=== PATIENT | female | born 1935 | race African-American/Black ===

== ENCOUNTER 2016-05-05 13:03 | Emergency (ER) | payer MEDICARE, OTHER ==
--- NOTE | 2016-05-05 13:45 | ED.ADGEN ---
Past Medical History Past Medical History: Anxiety, Dementia, Depression, GERD, Hypertension, Renal Failure Additional Past Medical Histor: HYPOPOTASSEMIA, Past Surgical History: No Surgical History Alcohol Use: None Drug Use: None Adult General Chief Complaint Chief Complaint: OTHER COMPLAINTS HPI HPI Patient is a 81 year old female with a history of dementia from the retirement. Patient herself is adamant that she is feeling fine and had no chest pain or other complaints today. However, there was report from the retirement that she did mention to one nurse that she was having a left-sided chest pain earlier today. Subsequently everyone else has received a negative answer. Patient looks very well. Her brothers in the room assisting with the history and states that she is definitely at her baseline looks just as well today as she did when he saw her yesterday. Review of Systems Review of Systems Constitutional: Denies fever or chills. [] Eyes: Denies change in visual acuity. [] HENT: Denies nasal congestion or sore throat. [] Respiratory: Denies cough or shortness of breath. [] Cardiovascular: Denies chest pain or edema. [] GI: Denies abdominal pain, nausea, vomiting, bloody stools or diarrhea. [] : Denies dysuria. [] Musculoskeletal: Denies back pain or joint pain. [] Integument: Denies rash. [] Neurologic: Denies headache, focal weakness or sensory changes. [] Endocrine: Denies polyuria or polydipsia. [] Lymphatic: Denies swollen glands. [] Psychiatric: Denies depression or anxiety. [] Allergies Allergies Allergies Coded Allergies Type Severity Reaction Last Updated Verified No Known Drug Allergies 06/16/15 No Physical Exam Physical Exam Constitutional: Well developed, well nourished, no acute distress, non-toxic appearance. [] HENT: Normocephalic, atraumatic, bilateral external ears normal, oropharynx moist, no oral exudates, nose normal. [] Eyes: PERRLA, EOMI, conjunctiva normal, no discharge. [] Neck: Normal range of motion, no tenderness, supple, no stridor. [] Cardiovascular:Heart rate regular rhythm, no murmur [] Lungs & Thorax: Bilateral breath sounds clear to auscultation [] Abdomen: Bowel sounds normal, soft, no tenderness, no masses, no pulsatile masses. [] Skin: Warm, dry, no erythema, no rash. [] Back: No tenderness, no CVA tenderness. [] Extremities: No tenderness, no cyanosis, no clubbing, ROM intact, no edema. [] Neurologic: Alert and oriented X 3, normal motor function, normal sensory function, no focal deficits noted. [] Psychologic: Affect normal, judgement normal, mood normal. [] Current Patient Data Vital Signs Vital Signs Date Time Temp Pulse Resp B/P Pulse Ox O2 Delivery O2 Flow Rate FiO2 05/05/16 14:45 72 111/60 99 05/05/16 13:45 Room Air 05/05/16 13:25 97.6 28 97.6 Lab Values Laboratory Tests Test 05/05/16 13:25 White Blood Count 5.5x10^3/uL (4.0-11.0) Red Blood Count 4.18x10^6/uL (3.50-5.40) Hemoglobin 12.4g/dL (12.0-15.5) Hematocrit 38.3% (36.0-47.0) Mean Corpuscular Volume 92fL (79-100) Mean Corpuscular Hemoglobin 30pg (25-35) Mean Corpuscular Hemoglobin Concent 32g/dL (31-37) Red Cell Distribution Width 15.9% (11.5-14.5) H Platelet Count 220x10^3/uL (140-400) Neutrophils (%) (Auto) 43% (31-73) Lymphocytes (%) (Auto) 43% (24-48) Monocytes (%) (Auto) 10% (0-9) H Eosinophils (%) (Auto) 3% (0-3) Basophils (%) (Auto) 1% (0-3) Neutrophils # (Auto) 2.4x10^3uL (1.8-7.7) Lymphocytes # (Auto) 2.4x10^3/uL (1.0-4.8) Monocytes # (Auto) 0.6x10^3/uL (0.0-1.1) Eosinophils # (Auto) 0.2x10^3/uL (0.0-0.7) Basophils # (Auto) 0.0x10^3/uL (0.0-0.2) Sodium Level 146mmol/L (136-145) H Potassium Level 4.3mmol/L (3.5-5.1) Chloride Level 106mmol/L (98-107) Carbon Dioxide Level 32mmol/L (21-32) Anion Gap 8 (6-14) Blood Urea Nitrogen 22mg/dL (7-20) H Creatinine 1.1mg/dL (0.6-1.0) H Estimated GFR (Cockcroft-Gault) 58.0 Glucose Level 83mg/dL (70-99) Calcium Level 9.8mg/dL (8.5-10.1) Troponin I Quantitative < 0.017ng/mL (0.000-0.055) Laboratory Tests 05/05/16 13:25 Laboratory Tests 05/05/16 13:25 EKG EKG EKG interpreted by me, normal sinus rhythm, 67 beats per minute, no ST segment elevation, normal axis. [] Radiology/Procedures Radiology/Procedures Indication: Chest pain and difficulty breathing. Technique: Upright portable chest radiograph was obtained. No comparison is available. Findings: The lungs are clear. The cardiopulmonary silhouette is within normal limits. There is atheromatous disease in the thoracic aorta. There are degenerative changes in the shoulders and spine with chronic right rotator cuff tear. Leads overlie the patient. Impression: No active pulmonary disease. DICTATED and SIGNED BY: LIT CAIN MD DATE: 05/05/16 7593 CC: CHRISTINA OWEN MD; UNKNOWN PCP NAME ~[] Course & Med Decision Making Course & Med Decision Making Pertinent Labs and Imaging studies reviewed. (See chart for details) Patient is a reassuring workup. She remained symptom-free. At this point we will discharge her back to the retirement. [] Dragon Disclaimer Dragon Disclaimer This electronic medical record was generated, in whole or in part, using a voice recognition dictation system. CHRISTINA OWEN MD May 05, 2016 13:45
[2016-05-05 13:54] LABS: BASO % 1 % (0-3); EOS % 3 % (0-3); HEMATOCRIT 38.3 % (36.0-47.0); HEMOGLOBIN 12.4 g/dL (12.0-15.5); LYMPH # 2.4 x10^3/uL (1.0-4.8); LYMPH % 43 % (24-48); MEAN CORPUSCULAR HEMOGLOBIN 30 pg (25-35); MEAN CORPUSCULAR HGB CONC 32 g/dL (31-37); MEAN CORPUSCULAR VOLUME 92 fL (79-100); MONO % 10 % (0-9); NEUT % 43 % (31-73); PLATELET COUNT 220 x10^3/uL (140-400); RED BLOOD COUNT 4.18 x10^6/uL (3.50-5.40); RED CELL DISTRIBUTION WIDTH 15.9 % (11.5-14.5); WHITE BLOOD COUNT 5.5 x10^3/uL (4.0-11.0)
[2016-05-05 14:05] LABS: CALCIUM 9.8 mg/dL (8.5-10.1); CREATININE 1.1 mg/dL (0.6-1.0); POTASSIUM 4.3 mmol/L (3.5-5.1)
--- NOTE | 2016-05-05 14:36 | RAD ---
Indication: Chest pain and difficulty breathing. Technique: Upright portable chest radiograph was obtained. No comparison is available. Findings: The lungs are clear. The cardiopulmonary silhouette is within normal limits. There is atheromatous disease in the thoracic aorta. There are degenerative changes in the shoulders and spine with chronic right rotator cuff tear. Leads overlie the patient. Impression: No active pulmonary disease.
[2016-05-05 14:45] VITALS: BP 111/60
--- NOTE | 2016-05-06 11:13 | EKG ---
[facility] [address] [place] [id number] Test Date: 2016-05-05 Test Time: 13:17:28 Pat Name: DIONY CORDOBA Department: Room: Gender: F Shake Feeder: : 1935 Requested By: CHRISTINA OWEN Order Number: [id number] Reading MD: Sophie Carr Measurements Intervals Busby Rate: 67 P: NE: QRS: 18 QRSD: 70 T: 43 QT: 398 QTc: 423 Interpretive Statements PROBABLE SINUS RHYTHM LOW LIMB LEAD VOLTAGE RI6.01 Unconfirmed report No previous ECG available for comparison Electronically Signed On 05-06-2016 15:12:22 CDT by Sophie Carr
== END 2016-05-05 15:55 | disposition home or self-care (01) ==
LOC: ER 13:03
DX: R07.9 Chest pain, unspecified (principal); F03.90 Unspecified dementia, unspecified severity, without behavioral disturbance, psychotic disturbance, mood disturbance, and anxiety; F32.9 Major depressive disorder, single episode, unspecified; K21.9 Gastro-esophageal reflux disease without esophagitis; E87.6 Hypokalemia; F41.9 Anxiety disorder, unspecified; I10 Essential (primary) hypertension
CPT/HCPCS: 36415; 71010; 80048; 84484; 85027; 93005; 99285-25